=== PATIENT | female | born 1995 | race Caucasian/White ===

== ENCOUNTER → 2019-07-16 12:07 | Outpatient (CLI) | payer OTHER, SELFPAY ==
--- NOTE | ~2019-07-16 | XR_ITS ---
EXAMINATION: [id number] DATE: 07/16/2019 12:23 INDICATION: Neck pain. TECHNIQUE: 3 views of cervical spine were obtained. COMPARISON: None. FINDINGS: Bone alignment is normal. Vertebral body heights are normal. Disc heights are normal. The f acet joints are normal. No central canal stenosis. No prevertebral soft tissue swelling. IMPRESSION: 1. Normal cervical spine. Reviewed, dictated and finalized at location A. [employer] IMPRESSION: 1. Normal cervical spine.
== END ==
PROVIDERS: Visit Provider Chiropractor
DX: M54.2 Cervicalgia (principal); M99.01 Segmental and somatic dysfunction of cervical region; M54.6 Pain in thoracic spine; M99.02 Segmental and somatic dysfunction of thoracic region; M25.531 Pain in right wrist; M99.07 Segmental and somatic dysfunction of upper extremity; M99.00 Segmental and somatic dysfunction of head region; M99.03 Segmental and somatic dysfunction of lumbar region; M99.05 Segmental and somatic dysfunction of pelvic region
CPT/HCPCS: 72040